=== PATIENT | female | born 1980 | race Two or more races ===

== ENCOUNTER 2017-07-26 09:49 | Emergency (ER) | payer OTHER ==
[2017-07-26 10:05] VITALS: BP 112/74; PULSE 64; TEMP 98.5; BMI 25.9
[2017-07-26 11:12] LABS: URINE APPEARANCE CLOUDY; URINE BILIRUBIN NEGATIVE (<2.0 mg/dL); URINE COLOR YELLOW; URINE GLUCOSE (UA) NEGATIVE (NEGATIVE); URINE KETONE NEGATIVE (NEGATIVE); URINE NITRITE NEGATIVE (NEGATIVE); URINE PROTEIN NEGATIVE (NEGATIVE); URINE UROBILINOGEN NEGATIVE mg/dL (0.2-1.0)
[2017-07-26 11:17] LABS: URINE LEUK ESTERASE 2+ (NEGATIVE)
--- NOTE | 2017-07-26 11:29 | PDOC ---
History of Present Illness - General Chief Complaint: Urinary Problem Stated Complaint: URINARY PROBLEM Time Seen by Provider: 07/26/17 10:26 History Source: Patient - History of Present Illness Timing/Duration: reports: constant Past History - Past Medical History Allergies/Adverse Reactions: Allergies Allergy/AdvReac Type Severity Reaction Status Date / Time No Known Allergies Allergy Verified 07/26/17 10:02 Home Medications: Ambulatory Orders NK [No Known Home Medication] 07/26/17 CVA: No COPD: No DVT: No - Immunization History Immunization Up to Date: Yes - Suicide/Smoking/Psychosocial Hx Smoking History: Never smoked Hx Alcohol Use: No Drug/Substance Use Hx: No Substance Use Type: None Review of Systems - Review of Systems Constitutional: No: Chills, Fever ABD/GI: No: Nausea, Vomiting, Abdominal cramping : Yes: Discharge. No: Burning, Dysuria, Flank Pain, Hematuria, Lesions *Physical Exam - Vital Signs Last Vital Signs Temp Pulse Resp BP Pulse Ox 98.5 F 64 112/74 99 07/26/17 10:02 07/26/17 10:02 07/26/17 10:02 07/26/17 10:02 - Physical Exam General Appearance: Yes: Appropriately Dressed. No: Apparent Distress HEENT: positive: Normal Voice Neck: positive: Supple Respiratory/Chest: negative: Respiratory Distress Female Pelvic Exam: positive: normal external exam, cervical os closed, normal adnexa, discharge (mod amount milky white discharge mixed w/ clumps, no foul odor, no lesions). negative: CMT, lesions, Bartholin mass, adnexal tenderness, vaginal bleeding Gastrointestinal/Abdominal: positive: Soft. negative: Tender Musculoskeletal: negative: CVA Tenderness Integumentary: positive: Dry, Warm Neurologic: positive: Fully Oriented, Alert, Normal Mood/Affect ED Treatment Course - ADDITIONAL ORDERS Additional order review: Laboratory Results 07/26/17 07/26/17 10:50 10:50 Urine Color Yellow Urine Appearance Cloudy Urine pH 5.0 Ur Specific [place] 1.023 Urine Protein Negative Urine Glucose (UA) Negative Urine Ketones Negative Urine Blood Negative Urine Nitrite Negative Urine Bilirubin Negative Urine Urobilinogen Negative Ur Leukocyte Esterase 2+ H Urine HCG, Qual Negative Medical Decision Making - Medical Decision Making 07/26/17 11:27 37-year-old female, s/p sterilization surgery, p/w vag discharge and itching 2 weeks. States discharge iss brown and thick. Using anti-itch cream over-the- counter with no relief. Denies abdominal pain, nausea, vomiting, fever, chills , or dysuria. States she had similar episode over a year ago and given a cream which did help. Sexually active with long time male partner only with no history of STDs per patient See exam Possibly cherise vaginitis No e/o PID UA w/ 2+ LE but no nit and no c/o dysuria, ucx sent STD and genital cx sent -dose of diflucan in ED -dc to f/u with cx results *DC/Admit/Observation/Transfer Diagnosis at time of Disposition: Vaginitis Qualifiers: Chronicity: acute Qualified Code(s): N76.0 - Acute vaginitis - Discharge Dispostion Disposition: HOME Condition at time of disposition: Good - Referrals - Patient Instructions Printed Discharge Instructions: Vaginal Yeast Infection Additional Instructions: la causa de baker secrecin vaginal y la picazn es probablemente causada por rj infeccin de levadura. Le dieron rj dosis de Diflucan en la [place], lo que debera mejorar los sntomas en los prximos ojeda. Enviamos rj cultura de ETS que demorar de 2 a 3 ojeda. Le llamaremos si algn resultado es positivo, de lo contrario. puede llamarnos al [phone]. Dara un seguimiento con baker gineclogo Print Language: [place] - Post Discharge Activity
[2017-07-26 11:30] LABS: EPI CELLS MODERATE /HPF (FEW); URINE BACTERIA MODERATE /hpf (NONE SEEN); URINE MUCUS MANY
[2017-07-26] MEDS ORDERED: FLUCONAZOLE 50 MG TABLET PO ONE (12:02)
[2017-07-26] MEDS ORDERED: FLUCONAZOLE 100 MG TABLET (UD) ONE (12:19)
--- NOTE | 2017-07-28 07:54 | PDOC ---
Patient Follow-up (Call Back) - Post ED Follow - Up Condition at time of discharge: Good Disposition at time of original discharge: HOME Reason for Call Back: Abnwl. Microbiology (Pt. with yeast on cervix cx. Pt treated for yeast infection last visit. Pt. also with (+) UC. Pending sensitivities, no abx.)
--- NOTE | 2017-07-29 07:55 | PDOC ---
Patient Follow-up (Call Back) - Post ED Follow - Up Condition at time of discharge: Good Disposition at time of original discharge: HOME Reason for Call Back: Abnwl. Microbiology (Attempted call twice - wrong number)
--- NOTE | 2017-07-30 07:54 | PDOC ---
Patient Follow-up (Call Back) - Post ED Follow - Up Condition at time of discharge: Good Disposition at time of original discharge: HOME Reason for Call Back: Abnwl. Microbiology (Called and spoke to juancarlos Marquez and will have patient clam picker medication at the medicine cabinet. I've also left the same message on a new phone number that the son gave me [phone].)
== END 2017-07-26 12:23 | disposition home or self-care (01) ==
LOC: JERFT 09:49
DX: N76.0 Acute vaginitis (principal)
CPT/HCPCS: 36415; 81003; 81015; 84703; 87070; 87077; 87086; 87186; 87205; 87491; 87591; 99281-25

== ENCOUNTER 2024-10-08 18:36 | Emergency (ER) | payer OTHER ==
[2024-10-08 18:51] VITALS: BP 146/78; PULSE 65; RESP 18; TEMP 98.1; BMI 29.7
[2024-10-08] MEDS: ACYCLOVIR 400 MG TABLET PO ONE (20:38)
== END 2024-10-08 20:39 | disposition home or self-care (01) ==
LOC: JERFT 18:36
DX: R21 Rash and other nonspecific skin eruption (principal)
CPT/HCPCS: 99283-25